=== PATIENT | female | born 1955 | race Caucasian/White ===

== ENCOUNTER 2020-11-01 20:30 | Observation (INO) | payer MEDICARE ==
[~2020-11-01] VITALS: Ht 160 cm; Wt 75.7 kg
[2020-11-01 20:52] LABS: BASOPHILS % (AUTO) 0.2 % (0.0-5.0); EOSINOPHILS % (AUTO) 0.6 % (0.0-8.0); HEMATOCRIT 39.8 % (36-48); LYMPHOCYTES % (AUTO) 11.7 % (21.0-51.0); MEAN CORPUSCULAR HEMOGLOBIN 29.6 pg (27.0-33.0); MEAN CORPUSCULAR HGB CONC 32.9 g/dL (32.0-36.0); MEAN CORPUSCULAR VOLUME 89.8 fL (79-99); MONOCYTES % (AUTO) 6.4 % (3.0-13.0); NEUTROPHILS % (AUTO) 80.8 % (40.0-77.0); PLATELET COUNT (AUTO) 180 K/uL (130-400); RED BLOOD CELL COUNT(AUTO) 4.43 MIL/uL (4.00-5.50); RED CELL DISTRIBUTION WIDTH 12.5 % (11.0-15.5); WHITE BLOOD COUNT (AUTO) 10.6 K/uL (4.8-10.8)
[2020-11-01 21:04] LABS: INR 0.99 (0.85-1.15); PROTHROMBIN TIME 10.6 SEC (9.6-11.6)
[2020-11-01 21:05] LABS: PARTIAL THROMBOPLASTIN TIME 23.9 SEC (26.3-35.5)
[2020-11-01 21:07] LABS: CREATININE 0.9 mg/dL (0.5-1.5); POTASSIUM 4.1 mmol/L (3.5-5.1)
[2020-11-01 21:19] LABS: ALBUMIN 3.8 g/dL (3.5-5.0); BILIRUBIN,TOTAL 0.5 mg/dL (0.2-1.0); THYROID STIMULATING HORMONE 0.09 uIU/mL (0.36-3.74); TOTAL PROTEIN, SERUM 7.2 g/dL (6.0-8.3)
[2020-11-01 23:03] LABS: APPEARANCE,URINE Clear (CLEAR); BILIRUBIN,URINE Negative (NEGATIVE); COLOR,URINE Yellow (YELLOW); GLUCOSE, URINE (UA) Negative (NEGATIVE); KETONES,URINE Negative (NEGATIVE); LEUKOCYTE ESTERASE ,URINE Negative (NEGATIVE); NITRATE,URINE Negative (NEGATIVE); OCCULT BLOOD,URINE Negative (NEGATIVE); PROTEIN,URINE Negative (NEGATIVE); UROBILINOGEN,URINE 0.2 mg/dL (0.2-1.0)
[2020-11-02] MEDS ORDERED: ACETAMINOPHEN 325 MG TAB PO PRN ×2 (01:00)
[2020-11-02] MEDS ORDERED: ONDANSETRON HCL 4 MG/2 ML VIAL IV PRN (01:00)
[2020-11-02] MEDS ORDERED: LACTULOSE 20 GM/30 ML UDCUP PO PRN (01:00)
[2020-11-02] MEDS ORDERED: IOHEXOL-350 75 ML VIAL IV ONE (01:21)
[2020-11-02 01:46] LABS: HEMOGLOBIN A1C 5.6 % (4.0-6.0)
[2020-11-02 05:13] LABS: BASOPHILS % (AUTO) 0.2 % (0.0-5.0); EOSINOPHILS % (AUTO) 2.3 % (0.0-8.0); HEMATOCRIT 40.3 % (36-48); LYMPHOCYTES % (AUTO) 28.7 % (21.0-51.0); MEAN CORPUSCULAR HEMOGLOBIN 30.2 pg (27.0-33.0); MEAN CORPUSCULAR HGB CONC 33.5 g/dL (32.0-36.0); MEAN CORPUSCULAR VOLUME 90.2 fL (79-99); MONOCYTES % (AUTO) 8.4 % (3.0-13.0); NEUTROPHILS % (AUTO) 60.1 % (40.0-77.0); PLATELET COUNT (AUTO) 169 K/uL (130-400); RED BLOOD CELL COUNT(AUTO) 4.47 MIL/uL (4.00-5.50); RED CELL DISTRIBUTION WIDTH 12.7 % (11.0-15.5); WHITE BLOOD COUNT (AUTO) 6.2 K/uL (4.8-10.8)
[2020-11-02 05:20] LABS: CREATININE 0.9 mg/dL (0.5-1.5); POTASSIUM 4.4 mmol/L (3.5-5.1)
[2020-11-02] MEDS ORDERED: ASPIRIN 81MG TAB.CHEW ONE (07:51)
[2020-11-02] MEDS ORDERED: FAMOTIDINE 20MG TAB 20 MG TAB ONE ×2 (07:51→21:09)
--- NOTE | 2020-11-02 08:00 | NUR ---
patient still in ER, AWAITING FOR PATIENT TO BE TRANSFERRED TO MEDICAL FLOOR IN ORDER TO BE ABLE TO INITIATE SKILLED PHYSICAL THERAPY EVALUATION ORDERED. Addendum: 11/02/20 at 1109 by MARIA T SALGADO, PT PT Amended: Links added.
[2020-11-02] MEDS: ASPIRIN 81MG TAB.CHEW PO SCH (09:00)
[2020-11-02 10:34] LABS: HEMOGLOBIN A1C 5.6 % (4.0-6.0)
--- NOTE | 2020-11-02 11:30 | NUR ---
DYSPHAGIA EVAL COMPLETED. -S/S OF ASPIRATION. RECOMMEND REGULAR TEXTURE, THIN LIQUIDS; PILLS WHOLE WITH LIQUIDS. Addendum: 11/03/20 at 0952 by PETER DE LA TORRE, [facility] Amended: Links added.
--- NOTE | 2020-11-02 12:00 | NUR ---
COGNITIVE-LINGUISTIC EVALUATION COMPLETED. WITHIN FUNCTIONAL LIMITS. EVALUATION: Pt AAOX3. Pt REQUESTS WANTS AND NEEDS INDEPENDENTLY. Pt INTELLIGIBLE AT 100% ACCURACY TO THE UNFAMILIAR LISTENER. Pt COMMUNICATING AT CONVERSATIONAL LEVEL WITH NO DEFICITS IDENTIFIED AT THIS TIME. Pt COMPLETED COGNITIVE-LINGUISTIC EVALUATION TARGETING: ORIENTATION, ATTENTION/CONCENTRATION, MEMORY (IMMEDIATE, SHORT-TERM AND LONG-TERM), PROBLEM SOLVING, LOGIC/REASONING/INFERENCE, THOUGHT ORGANIZATION, FUNCTIONAL MATH AND TELLING TIME. Pt ABLE TO COMPLETE TASKS WITH CORRECT AND TIMELY ANSWERS TO ALL SECTIONS. G-CODES SPOKEN LANGUAGE EXPRESSION: [id number] Addendum: 11/03/20 at 0955 by PETER DE LA TORRE [facility] Amended: Links added.
--- NOTE | 2020-11-02 15:15 | NUR ---
DC PLAN VISITED WITH PATIENT. PATIENT LIVES WITH SPOUSE. INDEPENDENT ABLE TO PERFORM ADL'S. PATIENT HAS NO SERVICES OR DME'S. PLAN TO RETURN HOME. Addendum: 11/02/20 at 1516 by HECTOR GRAHAM RN CM Amended: Links added.
[2020-11-02] MEDS ORDERED: ATORVASTATIN CALCIUM 40 MG TABLET PO SCH (21:00)
[2020-11-02] MEDS: FAMOTIDINE 20MG TAB 20 MG TAB PO SCH (21:00)
[2020-11-02] MEDS ORDERED: LORAZEPAM 2 MG/ML 1 ML VIAL ONE (21:08)
[2020-11-02] MEDS ORDERED: LORAZEPAM 2 MG/ML 1 ML VIAL IVP ONE (21:30)
[2020-11-03 01:10] VITALS: BP 141/85
[2020-11-03 03:36] LABS: BASOPHILS % (AUTO) 0.1 % (0.0-5.0); EOSINOPHILS % (AUTO) 1.8 % (0.0-8.0); HEMATOCRIT 40.9 % (36-48); LYMPHOCYTES % (AUTO) 18.5 % (21.0-51.0); MEAN CORPUSCULAR HEMOGLOBIN 29.5 pg (27.0-33.0); MEAN CORPUSCULAR VOLUME 89.3 fL (79-99); MONOCYTES % (AUTO) 7.6 % (3.0-13.0); NEUTROPHILS % (AUTO) 71.7 % (40.0-77.0); PLATELET COUNT (AUTO) 191 K/uL (130-400); RED BLOOD CELL COUNT(AUTO) 4.58 MIL/uL (4.00-5.50); RED CELL DISTRIBUTION WIDTH 12.7 % (11.0-15.5); WHITE BLOOD COUNT (AUTO) 6.8 K/uL (4.8-10.8)
[2020-11-03 03:47] LABS: CREATININE 0.9 mg/dL (0.5-1.5); POTASSIUM 3.9 mmol/L (3.5-5.1)
[2020-11-03 04:25] VITALS: BP 141/83
[2020-11-03] MEDS ORDERED: LEVOTHYROXINE 150 MCG TABLET PO SCH (06:30)
--- NOTE | 2020-11-03 06:58 | NUR ---
resident arrived from ER, and was received made comfortable in her room, she was orientated to the room, assesment done, patient was able to communicate , and followed all commands , after she got settled in bed , PCP found her already dressed and running out of the room, she said se was trying to go meet her sister downstairs as her was , we tried to stop her, but she kept making her way to the elevator, security was called and she was escorted back to her room, and her was called to come in , he has been with her the rest of the shift, she has been calm and resting in bed MD called and he said to wait for neurology consult today.
[2020-11-03] MEDS ORDERED: OXYB15TA19 PO (07:24)
[2020-11-03] MEDS ORDERED: LEVO150C4 PO (07:24)
[2020-11-03 08:00] VITALS: BP 123/74
[2020-11-03] MEDS ORDERED: OXYBUTYNIN 5 MG TAB.SR.24H PO SCH (09:00)
[2020-11-03] MEDS: FAMOTIDINE 20MG TAB 20 MG TAB PO SCH ×2 (09:00→09:11)
[2020-11-03] MEDS: ASPIRIN 81MG TAB.CHEW PO SCH (09:10)
--- NOTE | 2020-11-03 09:28 | NUR ---
FOLLOW UP COMPLETED. Pt TOLERATING DIET AND BACK AT BASELINE. EVALUATION COMPLETED IN ER. NURSE ALBERT NOTIFIED. NO ISSUES AT THIS TIME. Addendum: 11/05/20 at 0930 by PETER DE LA TORRE, SPT ST Amended: Links added.
[2020-11-03 10:07] VITALS: BP 110/70
--- NOTE | 2020-11-03 15:25 | NUR ---
Patient's requesting to talk to someone in charge on the floor. I went to the room and he said that he would like to file a grievance report because he feels that no one has kept him and his informed of what is going on today. I spoke to Radha primary care nurse and she said she has even been in the room with the wow to show' pt and her images of studies and informed him that we are just pending the 2-D echo results but that he seems to be in a hurry to be discharge because he has dogs at home that he needs to go feed.
--- NOTE | 2020-11-03 15:30 | NUR ---
Spoke to [employer]'s customer engagement representative and informed her of situation.She said she will give patient's a call to the room. I also called Dr. Ward to informed him and he said that this morning he went into the room with Dr. Hamilton and they both explained the plan of care for patient today and that the patient and her were both in agreement. He said he will be coming up in a few minutes to answer any other questions they might have.
--- NOTE | 2020-11-03 15:35 | NUR ---
Dr. Daisy Ward in the room talking to patient and her and answered their questions.
[2020-11-03] MEDS ORDERED: ATOR10 PO (15:37)
[2020-11-03] MEDS ORDERED: ASPI-1005 PO (15:37)
== END 2020-11-03 17:00 | disposition home or self-care (01) ==
LOC: EDH 20:30 → EDHIP 11-02 00:50 → 3BH 11-03 00:12
PROVIDERS: ADMIT Internal Medicine; ATTEND Internal Medicine
DX: R47.81 Slurred speech (principal); R53.1 Weakness; E03.9 Hypothyroidism, unspecified; F41.9 Anxiety disorder, unspecified; Z90.89 Acquired absence of other organs; Z79.899 Other long term (current) drug therapy
CPT/HCPCS: 36415 ×3; 70450; 70496; 70498; 70551; 71045; 80048 ×2; 80053; 80061; 81003; 82550; 82948; 83036 ×2; 84439; 84443; 84481; 84484; 85025 ×3; 85610; 85730; 92522; 92610; 93005; 93306; 93356; 93880; 97161; 99285; G0378 ×39; G8978; G8979; G8980; G8981; G8982; G8983; J2060; Q9967

== ENCOUNTER 2021-03-08 07:00 | Day surgery (SDC) | payer MEDICARE ==
[2021-03-02 12:38] LABS: BASOPHILS % (AUTO) 0.3 % (0.0-5.0); EOSINOPHILS % (AUTO) 1.6 % (0.0-8.0); HEMATOCRIT 41.5 % (36-48); LYMPHOCYTES % (AUTO) 18.4 % (21.0-51.0); MEAN CORPUSCULAR HEMOGLOBIN 29.4 pg (27.0-33.0); MEAN CORPUSCULAR VOLUME 91.8 fL (79-99); MONOCYTES % (AUTO) 7.7 % (3.0-13.0); NEUTROPHILS % (AUTO) 71.7 % (40.0-77.0); PLATELET COUNT (AUTO) 195 K/uL (130-400); RED BLOOD CELL COUNT(AUTO) 4.52 MIL/uL (4.00-5.50); RED CELL DISTRIBUTION WIDTH 13.1 % (11.0-15.5); WHITE BLOOD COUNT (AUTO) 6.2 K/uL (4.8-10.8)
[2021-03-02 12:53] LABS: CREATININE 1.1 mg/dL (0.5-1.5); POTASSIUM 4.3 mmol/L (3.5-5.1)
[2021-03-02 12:54] LABS: INR 0.95 (0.85-1.15); PROTHROMBIN TIME 10.4 SEC (9.6-11.6)
[2021-03-02 12:55] LABS: PARTIAL THROMBOPLASTIN TIME 27.3 SEC (26.3-35.5)
[2021-03-02 12:57] LABS: APPEARANCE,URINE Clear (CLEAR); BILIRUBIN,URINE Negative (NEGATIVE); COLOR,URINE Yellow (YELLOW); GLUCOSE, URINE (UA) Negative (NEGATIVE); KETONES,URINE Negative (NEGATIVE); LEUKOCYTE ESTERASE ,URINE Negative (NEGATIVE); NITRATE,URINE Negative (NEGATIVE); OCCULT BLOOD,URINE Negative (NEGATIVE); PH,URINE 6.5 (5.0-8.0); PROTEIN,URINE Negative (NEGATIVE)
[2021-03-04 12:13] VITALS: BP 135/70
[~2021-03-08] VITALS: Ht 160 cm; Wt 75.9 kg
[2021-03-08] VITALS (20 sets, daily range): BP systolic 100–135; BP diastolic 59–83
[~2021-03-08 07:00] MED LIST: ALPR0.255 PO; ASPI-1005 PO; CEFAZOLIN SODIUM 1 GM VIAL IVP SCH; CYAN500T9 PO; GENTAMICIN 80 MG/NS 100 ML PB 100 ML IV SCH; LEVO125C4 PO; LEVO500T89 PO; OXYB5TAB15 PO; RISP0.2515 PO; SERT-439 PO
[2021-03-08] MEDS ORDERED: LACTATED RINGERS 1000ML 1,000 ML IV ONE (07:33)
[2021-03-08] MEDS ORDERED: GENTAMICIN SULFATE 80 MG/2 ML VIAL ONE (08:05)
[2021-03-08] MEDS ORDERED: LIDOCAINE 1%-EPI 1:100,000 20 ML VIAL IJ ONE (08:05)
[2021-03-08] MEDS ORDERED: CEFAZOLIN SODIUM 1 GM VIAL ONE ×2 (08:09→10:34)
[2021-03-08] MEDS ORDERED: LIDOCAINE PF 2% 5ML ABBOJECT ONE (08:33)
[2021-03-08] MEDS ORDERED: PROPOFOL 10 MG/ML 20ML VIAL IV ONE ×2 (08:33→09:29)
[2021-03-08] MEDS ORDERED: FENTANYL CITRATE PF 50 MCG/1 ML 2ML VIAL ONE ×2 (08:34→09:26)
[2021-03-08] MEDS ORDERED: EPHEDRINE SULFATE 50 MG/ML AMPULE ONE (08:47)
[2021-03-08] MEDS ORDERED: ROCURONIUM 10MG/1ML SYR 10 MG/ML ML ONE (09:30)
[2021-03-08] MEDS ORDERED: BUPIVACAINE/PF 0.25% 30ML VIAL IJ ONE (10:14)
[2021-03-08] MEDS ORDERED: SODIUM CHLORIDE 0.9% 10 ML VIAL ONE (10:35)
[2021-03-08] MEDS ORDERED: ESTROGENS,CONJUGATED 0.625 MG/GM 42.5 GM VAG CRM VG ONE (10:58)
[2021-03-08] MEDS ORDERED: ONDANSETRON HCL 4 MG/2 ML VIAL ONE (11:02)
== END 2021-03-08 14:15 | disposition home or self-care (01) ==
LOC: DAH 07:00
PROVIDERS: ATTEND Urology
DX: N39.46 Mixed incontinence (principal); Z20.822 Contact with and (suspected) exposure to COVID-19; N36.42 Intrinsic sphincter deficiency (ISD); F41.9 Anxiety disorder, unspecified; K21.9 Gastro-esophageal reflux disease without esophagitis; Z98.890 Other specified postprocedural states; Z98.51 Tubal ligation status; Z86.73 Personal history of transient ischemic attack (TIA), and cerebral infarction without residual deficits; Z79.01 Long term (current) use of anticoagulants; Z79.82 Long term (current) use of aspirin; Z79.899 Other long term (current) drug therapy; Z90.49 Acquired absence of other specified parts of digestive tract
CPT/HCPCS: 36415; 57288; 71045; 80048; 81003; 85025; 85610; 85730; 87088; 93005; A4215 ×2; A4221; A4222; A4223; A4344; A4565; A4600; A4663; A6206; A6207; A6260; C1771; C9803; G0168; J0690 ×2; J1580; J2001; J2405; J2704; J3010 ×2; J3490 ×3; J7120 ×2; U0003